=== PATIENT | female | born 1945 | race American Indian/Alaskan Native ===

== ENCOUNTER 2021-03-13 08:37 | Outpatient (CLI) | payer MEDICARE ==
--- NOTE | 2021-03-14 08:10 | Magnetic Resonance Report ---
MRI BREAST BILATERAL WITH AND WITHOUT CONTRAST, 03/13/2021 CLINICAL INFORMATION / INDICATION: C50.412 BREAST CA. 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 The patient also has a history of multiple ronal ateral breast cysts. TECHNIQUE: Axial T1 and T2-weighted fat sat images were obtained precontrast. Gadolinium-based contra st was injected intravenously and serial axial T1 weighted images with fat saturation were obtained. 3-D MIP projections, kinetic analysis, and subtraction imaging were utilized to evaluate. A dedicated 8-channel breast coil was used for image acquisition. COMPARISON: Screening mammogram from 12/26/2014. No other recent imaging of the breasts is available fo r review at this time. A 02/20/[address] Rosales has been reviewed. FINDINGS: BREAST DENSITY: Scattered areas of fibroglandular density. BACKGROUND ENHANCEMENT: Moderate background enhancement within both breasts. RIGHT BREAST: No dominant mass or suspicious area of enhancement in the right breast. Multiple cysts of varying size without suspicious features are seen throughout the right breast. A dominant cyst loc ated anteriorly in the 9:00 position measures 2.7 x 1.7 cm on image 30 of series 4. LEFT BREAST: A previously biopsied spiculated mass is seen posteriorly along the left breast in the 3 :00 position 15 cm from the nipple with mild enhancement measuring 1.9 x 0.8 cm on image 321 of serie s 6. This mass is located approximately 8 mm from the chest wall and 7 mm from the nearest skin surfa ce, located laterally. No other suspicious mass or area of suspicious enhancement is identified. Mult iple cysts are noted in the left breast without suspicious features with a dominant cyst located cent rally along the middle depth measuring 2.9 x 1.0 cm on image 33 of series 4. AXILLAE: No pathologically enlarged axillary lymph nodes. ADDITIONAL FINDINGS: Limited imaging of the thorax and upper abdomen demonstrates no focal abnormalit y. IMPRESSION: 1. Known left breast cancer as above without MRI evidence of additional sites of malignancy in either breast. 2. Bilateral breast cysts as above without suspicious features. Follow up recommendation: Surgical consult BI-RADS Category 6: Known Biopsy-Proven Malignancy. Signer Name: Clint Whitely MD Signed: 03/14/2021 8:05 AM Workstation Name: [id number]
== END 2021-03-13 08:38 | disposition home or self-care (01) ==
LOC: SPVIMAG 08:37
PROVIDERS: ATTEND Surgery
DX: C50.412 Malignant neoplasm of upper-outer quadrant of left female breast (principal); N60.01 Solitary cyst of right breast; N60.02 Solitary cyst of left breast
CPT/HCPCS: A9575; C8908; 77049

== ENCOUNTER 2021-04-14 10:02 | Day surgery (SDC) | payer MEDICARE ==
[2021-04-08 10:55] LABS: Hematocrit 37.8 % (30.3-42.9); Hemoglobin 12.6 gm/dl (10.1-14.3); Mean Corpuscular HGB Conc 33 % (30-34); Mean Corpuscular Volume 85 fl (79-97); Platelet Count 229 K/mm3 (140-440); Red Blood Count 4.46 M/mm3 (3.65-5.03); Red Cell Distribution Width 15.3 % (13.2-15.2)
[~2021-04-14 10:02] MED LIST: VANCOMYCIN/NS 1 GM/250 ML 1 GM/250 ML BAG IV NR
[2021-04-14] MEDS ORDERED: ONDANSETRON 4 MG/2 ML INJ IV PRN (12:04)
[2021-04-14] MEDS ORDERED: HYDROmorphone 1 MG/1 ML INJ IV PRN ×2 (12:04)
--- NOTE | 2021-04-14 12:06 | Anesthesia Day of Surgery ---
Anesthesia Day of Surgery - Day of Surgery Patient Examined: Yes Patient H&P Reviewed: Yes Patient is NPO: Yes
--- NOTE | 2021-04-14 12:16 | Anesthesia Consultation ---
Anesthesia Consult and Med Hx Date of service: 04/14/21 - Airway Anesthetic Teeth Evaluation: Chipped (Lower cavity), Dentures (Upper), Edentulous (Upper) ROM Head & Neck: Adequate Mental/Hyoid Distance: Adequate Mallampati Class: Class II Intubation Access Assessment: Good - Pre-Operative Health Status ASA Pre-Surgery Classification: ASA2 Proposed Anesthetic Plan: General - Pulmonary Hx Smoking: No Hx Asthma: Yes - Cardiovascular System Hx Hypertension: Yes (+Cardiac clearance) - Central Nervous System Hx Back Pain: Yes Hx Psychiatric Problems: No - Gastrointestinal Hx Gastroesophageal Reflux Disease: Yes (Occasional/dietary) - Endocrine Hx Thyroid Disease: Yes Hx Hypothyroidism: Yes - Hematic Hx Sickle Cell Disease: No - Other Systems Hx Alcohol Use: No Hx Substance Use: No Hx Cancer: Yes
[2021-04-14] MEDS ORDERED: LACTATED RINGERS 1,000 ML IV SCH (12:30)
[2021-04-14] MEDS ORDERED: fentaNYL 100 MCG/2 ML INJ ONE (12:41)
[2021-04-14] MEDS ORDERED: propofoL 200 MG/20 ML VIAL IV ONE ×2 (12:41→13:36)
[2021-04-14] MEDS ORDERED: LIDOCAINE MPF (2%) 20 MG/1 ML VIAL 5 ML ONE (12:47)
[2021-04-14] MEDS ORDERED: CELECOXIB 200 MG CAP PO NR (13:00)
[2021-04-14] MEDS ORDERED: MIDAZOLAM 2 MG/2 ML INJ IV NR (13:00)
[2021-04-14] MEDS ORDERED: MAGNESIUM OXIDE 400 MG TAB PO ONE (13:05)
[2021-04-14] MEDS ORDERED: ACETAMINOPHEN 325 MG TAB PO ONE (13:05)
[2021-04-14] MEDS ORDERED: SODIUM CHLORIDE P/F VIAL 10 ML 10 ML ONE (13:25)
[2021-04-14] MEDS ORDERED: METHYLENE BLUE 50 MG/10 ML AMP ONE (13:26)
[2021-04-14] MEDS ORDERED: BUPIVACAINE/PF (0.25%) 2.5 MG/ML 30 ML VIAL INFILTRATI ONE ×3 (14:01→14:04)
[2021-04-14] MEDS ORDERED: LIDOCAINE (1%) 10 MG/1 ML VIAL 20 ML MDV ONE (14:01)
[2021-04-14] MEDS ORDERED: WATER FOR IRRIG STERILE 1,500 ML BOTTLE IR ONE (14:04)
[2021-04-14] MEDS ORDERED: LIDOCAINE (1%) 10 MG/1 ML VIAL 20 ML MDV INFILTRATI ONE ×2 (14:05)
[2021-04-14] MEDS ORDERED: SODIUM CHLORIDE 0.9% P/F 10 ML VIAL IV ONE (14:17)
[2021-04-14] MEDS ORDERED: METHYLENE BLUE 50 MG/10 ML AMP IV ONE (14:17)
[2021-04-14] MEDS ORDERED: ePHEDrine SULFATE 50 MG/1 ML INJ ONE (14:36)
[2021-04-14] MEDS ORDERED: GLYCOPYRROLATE 0.4 MG/2 ML INJ ONE (14:39)
--- NOTE | 2021-04-14 16:14 | Short Stay Summary ---
Short Stay Documentation Date of service: 04/14/21 - History H&P: obtained from office - Allergies and Medications Current Medications: Allergies aspirin Allergy (Verified 04/03/21 15:54) Unknown NSAIDS (Non-Steroidal Anti-Inflamma Allergy (Verified 04/14/21 12:18) Unknown Penicillins Allergy (Verified 04/03/21 15:53) Rash ASPIRIN IN ANY MEDICATIONS Allergy (Uncoded 04/03/21 15:54) Unknown Home Medications Medication Instructions Recorded Confirmed Last Taken Type AtorvaSTATin [Lipitor] 10 mg PO QHS 04/03/21 04/03/21 04/13/21 History Gabapentin [Neurontin] 300 mg PO DAILY 04/03/21 04/03/21 04/13/21 History Levothyroxine [Synthroid] 112 mcg PO QAM 04/03/21 04/03/21 04/14/21 08:00 History Meclizine [Antivert] 25 mg PO TID PRN 04/03/21 04/03/21 04/13/21 History RX: Irbesartan 150 mg PO DAILY 04/03/21 04/03/21 04/13/21 History amLODIPine [Norvasc] 10 mg PO DAILY 04/03/21 04/03/21 04/14/21 08:00 History hydroCHLOROthiazide [HCTZ] 25 mg PO QDAY 04/03/21 04/03/21 04/13/21 History RX: traMADoL [Ultram 50 MG tab] 50 mg PO Q6HR PRN #12 tablet 04/14/21 Unknown Rx Active Medications Celecoxib (Celecoxib 200 Mg Cap) 200 mg PO PREOP NR Stop: 04/14/21 23:00 Hydromorphone HCl (Hydromorphone 1 Mg/1 Ml Inj) 0.25 mg IV Q10MIN PRN PRN Reason: Pain, Moderate (4-6) Stop: 04/14/21 23:05 Hydromorphone HCl (Hydromorphone 1 Mg/1 Ml Inj) 0.5 mg IV Q10MIN PRN PRN Reason: Pain , Severe (7-10) Stop: 04/14/21 23:05 Vancomycin HCl (Vancomycin/Ns 1 Gm/250 Ml) 1 gm in 250 mls @ 166.667 mls/hr IV PREOP NR; Protocol Stop: 04/14/21 23:59 Last Admin: 04/14/21 12:30 Dose: 166.667 mls/hr Documented by: Lactated Ringer's (Lactated Ringers) 1,000 mls @ 100 mls/hr IV DIRECT KATELIN Last Admin: 04/14/21 12:00 Dose: 100 mls/hr Documented by: Midazolam HCl (Midazolam 2 Mg/2 Ml Inj) 2 mg IV PREOP NR Stop: 04/14/21 23:59 Ondansetron HCl (Ondansetron 4 Mg/2 Ml Inj) 4 mg IV ONCE PRN PRN Reason: Nausea And Vomiting - Brief post op/procedure progress note Date of procedure: 04/14/21 Pre-op diagnosis: Left breast cancer upper outer quadrant Post-op diagnosis: same Procedure: Left partial mastectomy of the upper outer quadrant and SLNB Anesthesia: GETA Findings: Left breast clip and mass present; x2 SLNs Surgeon: ROSAURA MELISSA Estimated blood loss: minimal Pathology: list Specimen disposition: to lab Condition: stable - Disposition Condition at discharge: Good Disposition: DC-01 TO HOME OR SELFCARE Short Stay Discharge Plan Activity: other (no heavy lifting) Diet: regular Wound: keep clean and dry (wear breast binder; may shower in 48 hours; no baths, pools or lakes) Follow up with: ROSAURA MELISSA MD [Staff Physician] - 7 Days Prescriptions: RX: traMADoL [Ultram 50 MG tab] 50 mg PO Q6HR PRN #12 tablet PRN Reason: Pain
--- NOTE | 2021-04-14 16:19 | Operative Report ---
Operative Report Operative Report: Operative Report: April 14, 2021 Preoperative diagnosis: Left breast cancer of the upper outer quadrant Postoperative diagnosis: Same Procedure: Left breast partial mastectomy of the upper outer quadrant with SLNB Surgeon: Marya Rosales MD Anesthesia: General Findings: Left breast mass and clip present within radiograph specimen; x2 SLNs Complications: None EBL: Less than 50 cc Disposition: PACU in good condition Indications for operative procedure: This is a 76 year old lady with newly diagnosed left breast cancer of the upper outer quadrant, IDCA grade 2-3, Stage IA [id number] ER/FL/Her-2 positive (3:00 position 15 cm FN). Recommendations are to proceed with breast conservation. She understands the role of adjuvant radiation therapy and chemotherapy. She wished to proceed with the above procedure. Procedure in detail: Patient was taken to the operating room. Gen. anesthesia was administered. The left nipple was injected with radioisotope and 1 cc of methylene blue dye. Left breast and axilla were prepped and draped in the normal sterile operative fashion. Timeout was performed. Gamma probe was inserted into the axilla. The area of hot spot was identified. A left axillary incision was made with a 15 blade knife with dissection taken down to the smith bcutaneous tissues. The axillary fascia was opened with the Bovie cautery. 2 SLNs were identified and dissected free with blue dye present. All remaining counts were less than 10% of the highest count. Lymph nodes were sent to pathology for permanent processing. Hemostasis was obtained in the left axillary cavity. Axillary cavity was appropriately irrigated and suctioned. Hemostasis was noted. Axillary fascia was approximated and closed using interrupted 3-0 Vicryl and the skin brought together and closed using a running 4-0 Monocryl followed by skin affix. Attention was then taken towards the left breast. Ultrasound was used to wilber the area of incision; known breast malignancy at 3:00 position 15 cm FN. An upper outer quadrant breast incision around 3:00 position was made with a 15 blade knife and dissection taken down to subcutaneous tissues. First began raising of the superior flap with dissection taken superiorly past the area of known malignancy and then taken down to the pectoralis muscle, followed by raising of the inferior flap, medial flap and lateral flap with all flaps taken past the area of known malignancy and then posteriorly down to the pectoralis muscle. The breast area of concern was appropriately removed posteriorly from the pectoralis muscle with the aid of the Bovie cautery. Specimen was marked and then sent to pathology and radiology; radiograph specimen with mass and clip present. Breast cavity was irrigated and hemostasis was obtained. Breast cavity was anesthesized with 1% lidocaine with quarter percent marcaine. Then proceeded with complex closure. The posterior deep breast tissues were then mobilized and closed using interrupted 3-0 Vicryl. The subcutaneous tissues were then approximated and closed using interrupted 3-0 Vicryl followed by closing of the skin with a running 4-0 Monocryl and dermabond. The patient tolerated surgery very well and she was awaken from anesthesia without any complication and transported to PACU in good condition.
[2021-04-14] MEDS ORDERED: MEPERIDINE 25 MG/1 ML INJ IV PRN (16:34)
--- NOTE | 2021-04-14 17:09 | Mammography Report ---
BREAST SPECIMEN RADIOGRAPH HISTORY: Lumpectomy FINDINGS/IMPRESSION: The submitted radiograph or radiographs demonstrate(s) the presence of a spiculated mass with associa dennise biopsy clip in the central aspect of the specimen radiograph. No localization wire is present. Signer Name: Bertha Merrill MD Signed: 04/14/2021 5:05 PM Workstation Name: [id number]
[2021-04-14 17:34] VITALS: BP 136/69
--- NOTE | 2021-04-14 20:05 | Post Anesthesia Evaluation ---
- Post Anesthesia Evaluation Patient Participated: Yes Airway Patent: Yes Stable Respiratory Function: Yes Nausea/Vomiting: No Temp > 96.8F: Yes Pain Manageable: Yes Adequeate Hydration: Yes Anesthesia Complications: No Block Receding Appropriately: Not Applicable Patient on Ventilator: No
== END 2021-04-14 17:40 | disposition home or self-care (01) ==
LOC: OR 10:02
PROVIDERS: ATTEND Surgery
DX: C50.412 Malignant neoplasm of upper-outer quadrant of left female breast (principal); Z20.822 Contact with and (suspected) exposure to COVID-19; E78.00 Pure hypercholesterolemia, unspecified; I10 Essential (primary) hypertension; K21.9 Gastro-esophageal reflux disease without esophagitis; E89.0 Postprocedural hypothyroidism; Z88.0 Allergy status to penicillin; Z88.6 Allergy status to analgesic agent; Z79.899 Other long term (current) drug therapy; Z90.710 Acquired absence of both cervix and uterus; Z98.890 Other specified postprocedural states
CPT/HCPCS: 19301; 36415; 38525; 38792; 76098; 78800; 85027; 88307; 88333; A9541; J2175; J2405; J2704; J3010; J3370; J7120; Q9968; U0003; 88341; 88342

== ENCOUNTER 2021-05-30 07:04 | Day surgery (SDC) | payer MEDICARE ==
[~2021-05-30 07:04] MED LIST changes: +VANCOMYCIN 1,500 MG in SODIUM CHLORIDE 0.9% 500 ML 500 ML IV NR; -VANCOMYCIN/NS 1 GM/250 ML 1 GM/250 ML BAG IV NR
[2021-05-30] MEDS ORDERED: LIDOCAINE PF 100 MG/5 ML (CARDIAC SYRINGE) IV ONE (07:09)
[2021-05-30] MEDS ORDERED: propofoL 200 MG/20 ML VIAL IV ONE ×3 (07:29→09:27)
[2021-05-30] MEDS ORDERED: MIDAZOLAM 2 MG/2 ML INJ ONE (07:29)
[2021-05-30] MEDS ORDERED: BUPIVACAINE/PF (0.25%) 2.5 MG/ML 30 ML VIAL INFILTRATI ONE ×2 (07:37→09:20)
[2021-05-30] MEDS ORDERED: LIDOCAINE (1%) 10 MG/1 ML VIAL 20 ML MDV ONE (07:37)
[2021-05-30] MEDS ORDERED: HEPARIN 10,000 UNITS/10 ML VIAL ONE (07:38)
[2021-05-30] MEDS ORDERED: SODIUM CHLORIDE 0.9% 100 ML ONE (07:38)
--- NOTE | 2021-05-30 07:53 | Anesthesia Consultation ---
Anesthesia Consult and Med Hx Date of service: 05/30/21 - Airway Anesthetic Teeth Evaluation: Poor, Chipped, Dentures ROM Head & Neck: Adequate Mental/Hyoid Distance: Adequate Mallampati Class: Class III - Pulmonary Exam CTA: Yes - Cardiac Exam Cardiac Exam: RRR - Pre-Operative Health Status ASA Pre-Surgery Classification: ASA3 Proposed Anesthetic Plan: MAC - Pulmonary Hx Smoking: No Hx Asthma: Yes (Has inhaler but has not used in >10 years) Hx Sleep Apnea: No (KALIA PRE SCREEN LOW RISK) - Cardiovascular System Hx Hypertension: Yes - Central Nervous System Hx Back Pain: Yes (s/p lumbar laminectomy, ACDF) Hx Psychiatric Problems: No - Gastrointestinal Hx Gastroesophageal Reflux Disease: Yes (Occasional/dietary) - Endocrine Hx Thyroid Disease: Yes Hx Hypothyroidism: Yes - Hematic Hx Sickle Cell Disease: No - Other Systems Hx Alcohol Use: No Hx Substance Use: No Hx Cancer: Yes (L Breast - s/p partial mastectomy)
--- NOTE | 2021-05-30 07:55 | Anesthesia Day of Surgery ---
Anesthesia Day of Surgery - Day of Surgery Patient Examined: Yes Patient H&P Reviewed: Yes Patient is NPO: Yes
[2021-05-30] MEDS ORDERED: LACTATED RINGERS 1,000 ML ONE (08:06)
[2021-05-30] MEDS ORDERED: VANCOMYCIN/NS 1 GM/250 ML 1 GM/250 ML BAG IV NR (09:00)
[2021-05-30] MEDS ORDERED: HEPARIN 10,000 UNITS/10 ML VIAL IR ONE (09:19)
[2021-05-30] MEDS ORDERED: LIDOCAINE (1%) 10 MG/1 ML VIAL 20 ML MDV INFILTRATI ONE (09:21)
[2021-05-30] MEDS ORDERED: SODIUM CHLORIDE 0.9% IRR 1,500 ML BOTTLE IR ONE (09:21)
[2021-05-30] MEDS ORDERED: fentaNYL 100 MCG/2 ML INJ ONE (09:25)
--- NOTE | 2021-05-30 09:56 | Short Stay Summary ---
Short Stay Documentation Date of service: 05/30/21 - History Principal diagnosis: left sided port H&P: obtained from office - Allergies and Medications Current Medications: Allergies aspirin Allergy (Verified 04/03/21 15:54) Unknown NSAIDS (Non-Steroidal Anti-Inflamma Allergy (Verified 04/14/21 12:18) Unknown Penicillins Allergy (Verified 04/03/21 15:53) Rash ASPIRIN IN ANY MEDICATIONS Allergy (Uncoded 04/03/21 15:54) Unknown Home Medications Medication Instructions Recorded Confirmed Last Taken Type AtorvaSTATin [Lipitor] 10 mg PO QHS 04/03/21 05/28/21 04/13/21 History Gabapentin [Neurontin] 300 mg PO DAILY 04/03/21 05/28/21 04/13/21 History Irbesartan 150 mg PO DAILY 04/03/21 05/28/21 04/13/21 History Levothyroxine [Synthroid] 112 mcg PO QAM 04/03/21 05/28/21 04/14/21 08:00 Histor y Meclizine [Antivert] 25 mg PO TID PRN 04/03/21 05/28/21 04/13/21 History amLODIPine [Norvasc] 10 mg PO DAILY 04/03/21 05/28/21 04/14/21 08:00 History hydroCHLOROthiazide [HCTZ] 25 mg PO QDAY 04/03/21 05/28/21 04/13/21 History Active Medications Vancomycin HCl 1,500 mg/ (Sodium Chloride) 530 mls @ 333.333 mls/hr IV PREOP NR Stop: 05/30/21 20:00 Last Admin: 05/30/21 08:45 Dose: 333.333 mls/hr Documented by: Lactated Ringer's (Lactated Ringers) 1,000 mls @ 75 mls/hr IV DIRECT KATELIN Stop: 05/30/21 18:00 - Brief post op/procedure progress note Date of procedure: 05/30/21 Pre-op diagnosis: left sided breast cancer Post-op diagnosis: same Procedure: placement of right IJ port with bedside ultrasound guidance Anesthesia: MAC, local Findings: good placement of port without PTX on post op CXR Surgeon: JEN MARTINEZ Estimated blood loss: minimal Pathology: none Condition: stable - Hospital course Hospital course: Pt observed in PACU and discharged to home in stable condition when criteria met - Disposition Condition at discharge: Good Short Stay Discharge Plan Activity: no restrictions Diet: regular Wound: open to air, per your surgeon's advice Additional Instructions: SEE PRINTED DISCHARGE PAPERS Follow up with: DIANA MCLAUGHLIN MD [Primary Care Provider] - 7 Days JEN MARTINEZ DO [Staff Physician] - 14 Days Prescriptions: HYDROcodone/APAP 5-325 [Pauline 5/325] 1 each PO Q6HR PRN #10 tablet PRN Reason: Pain , Severe (7-10)
[2021-05-30] MEDS ORDERED: LACTATED RINGERS 1,000 ML IV SCH (10:00)
[2021-05-30] MEDS: HYDROmorphone 1 MG/1 ML INJ IV PRN ×2 (10:11→10:22)
--- NOTE | 2021-05-30 10:27 | Fluoroscopy Report ---
FL central venous dev plct Technique: Intraoperative fluoroscopic guidance was provided. Fluoroscopy time: 39 seconds. Fluoroscopy images: 2. Findings/Impression: Intraoperative fluoroscopic guidance for right chest wall port placement.. The t ip of the catheter projects over the cavoatrial junction. No pneumothorax. Please see procedure repor t for further details. Signer Name: Jamal Juarez MD Signed: 05/30/2021 10:23 AM Workstation Name: [id number]
[2021-05-30] MEDS ORDERED: ONDANSETRON 4 MG/2 ML INJ IV PRN (10:30)
[2021-05-30 10:42] VITALS: BP 135/70
[2021-05-30] MEDS ORDERED: HYDROcodone/ACETAMINOPHEN 5-325 MG TAB PO PRN (11:00)
--- NOTE | 2021-05-30 15:58 | Operative Report ---
Operative Report Operative Report: Date of procedure: 05/30/21 Pre-op diagnosis: left sided breast cancer Post-op diagnosis: same Procedure: placement of right IJ port with bedside ultrasound guidance Anesthesia: MAC, local Findings: good placement of port without PTX on post op CXR Surgeon: JEN MARTINEZ Estimated blood loss: minimal Pathology: none Condition: stable Hospital course: Pt observed in PACU and discharged to home in stable condition when criteria met HPI and indication: Patient is a 76 yo F with a diagnosis of left breast cancer. The patient is deemed a candidate for chemotherapy which is tentatively scheduled to start on 06/03. Port placement discussed with patient. All of the risks associated with procedure were discussed with the patient including but not limited to pneumothorax, infection, bleeding, malpositioned port, injury to other structures. The patient understands and all questions were answered. Consent was signed and placed on chart. Procedure in detail: The patient was identified in the preoperative area, taken back to operating room, placed on operating table in supine position. After anesthesia was induced both arms were tucked and upper chest and neck were prepped and draped in usual sterile fashion. A timeout was performed. The was placed in Trendelenburg position. Local anesthetic was infiltrated into the skin at the intended puncture site. The right subclavian and internal jugular vein was identified using bedside ultrasound. Two attempts were made to access the right subclavian vein but were unsuccessful. The right internal jugular vein was accessed on the first stick. There was return of dark red, nonpulsatile blood. A glide wire was threaded under fluoroscopy without resistance and positioning confirmed. The needle was then removed. Using a 15 blade, an incision was made in the right upper chest and dissection carried down through the skin and subcutaneous tissue using Bovie electrocautery until the pre pectoral fascia was encountered. Hemostasis was achieved along the way. A pocket for the port was then created bluntly and with electrocautery. The catheter was flushed and tunneled from the pocket to the wire. A breakaway catheter/dilator sheath then inserted over the wire under fluoroscopy, and the wire and dilator removed. The catheter was then inserted through the breakaway catheter which was then removed. The catheter sat flush under the skin. Using continuous fluoroscopy, the catheter was pulled back until the tip was visualized in the right atrium. The catheter was then cut to size and the port attached in the usual fashion. The port was then sutured into place to the pre-pectoral fascia using 2-0 Vicryl interrupted sutures. The wound was irrigated and hemostasis ensured. The port was tested with heparinized saline and there was return of blood and it flushed easily. The port was then instilled with 3000 units of straight heparin. The deep dermal layer was then closed with interrupted 3-0 Vicryl stitches. The skin incisions were closed with 4-0 Monocryl subcuticular stitches and skin glue. Intraoperative chest x-ray did show good positioning of the port, without evidence of pneumothorax At the end of the case, all sponge, instrument, sharp counts were correct 2. The patient was awoken from anesthesia and taken to PACU in stable condition.
== END 2021-05-30 11:25 | disposition home or self-care (01) ==
LOC: OR 07:04
PROVIDERS: ATTEND Surgery
DX: Z45.2 Encounter for adjustment and management of vascular access device (principal); C50.412 Malignant neoplasm of upper-outer quadrant of left female breast; I10 Essential (primary) hypertension; J45.909 Unspecified asthma, uncomplicated; K21.9 Gastro-esophageal reflux disease without esophagitis; E03.9 Hypothyroidism, unspecified; E78.00 Pure hypercholesterolemia, unspecified; Z79.899 Other long term (current) drug therapy; Z98.890 Other specified postprocedural states; Z88.0 Allergy status to penicillin; Z88.8 Allergy status to other drugs, medicaments and biological substances; Z20.822 Contact with and (suspected) exposure to COVID-19
CPT/HCPCS: 36561; 77001; C1769; C1788; J1170; J1644; J2001; J2250; J2704; J3010; J3370; J7040; J7120; U0003